=== PATIENT | male | born 1985 | race Caucasian/White ===

== ENCOUNTER 2017-08-21 21:45 | Inpatient (IN) | payer OTHER ==
[~2017-08-21] VITALS: Ht 190.5 cm; Wt 81.6 kg
[2017-08-21] MEDS ORDERED: DICYCLOMINE HCL 20 MG TABLET PO PRN (23:15)
[2017-08-21] MEDS ORDERED: ACETAMINOPHEN 325 MG TABLET PO PRN (23:15)
[2017-08-21] MEDS ORDERED: BUPRENORPHINE HCL 2 MG TAB.SUBL SL PRN (23:15)
[2017-08-21] MEDS ORDERED: MAGNESIUM HYDROXIDE 30 ML LIQUID UDC PO PRN (23:15)
[2017-08-21] MEDS ORDERED: LORAZEPAM 2 MG/1 ML VIAL IM PRN (23:15)
[2017-08-21] MEDS ORDERED: ONDANSETRON 4 MG/2 ML VIAL IM PRN (23:15)
[2017-08-21] MEDS ORDERED: MIRALAX 17 GM POWD.PACK PO PRN (23:15)
[2017-08-21] MEDS ORDERED: IBUPROFEN 600 MG TABLET PO PRN (23:15)
[2017-08-21] MEDS ORDERED: METHOCARBAMOL 750 MG TABLET PO PRN (23:15)
[2017-08-21] MEDS ORDERED: MAG HYDROX/AL HYDROX/SIMETH 30 ML LIQUID UDC PO PRN (23:15)
[2017-08-21] MEDS ORDERED: LOPERAMIDE HCL 2 MG CAPSULE PO PRN ×2 (23:15)
[2017-08-21] MEDS ORDERED: LORAZEPAM 1 MG TABLET PO PRN (23:15)
[2017-08-21] MEDS: diphenhydrAMINE 50 MG CAPSULE PO PRN (23:36)
[2017-08-21] MEDS ORDERED: diphenhydrAMINE 50 MG CAPSULE ONE (23:45)
[2017-08-21] MEDS ORDERED: LORAZEPAM 1 MG TABLET ONE (23:45)
[2017-08-21 23:56] LABS: BASOPHILS # (AUTO) 0.1 K/uL (0.0-8.0); BASOPHILS % (AUTO) 0.7 % (0.0-2.0); EOSINOPHILS # (AUTO) 0.2 K/uL (0.0-0.7); EOSINOPHILS % (AUTO) 1.8 % (0.0-7.0); HEMOGLOBIN 12.7 g/dL (12.5-16.3); LYMPHOCYTES # (AUTO) 2.2 K/uL (20.0-40.0); LYMPHOCYTES % (AUTO) 25.4 % (20.5-51.5); MEAN CORPUSCULAR HEMOGLOBIN 32.4 uug (23.8-33.4); MEAN CORPUSCULAR HGB CONC 34 g/dL (32.5-36.3); MEAN CORPUSCULAR VOLUME 94.2 fL (73.0-96.2); MONOCYTES # (AUTO) 0.9 K/uL (2.0-10.0); NEUTROPHILS # (AUTO) 5.4 K/uL (1.8-8.9); NEUTROPHILS % (AUTO) 62.1 % (38.5-71.5); PLATELET COUNT (AUTO) 246 K/uL (152-348); RED BLOOD CELL COUNT(AUTO) 3.93 MIL/uL (4.06-5.63); WHITE BLOOD COUNT (AUTO) 8.7 K/uL (3.6-10.2)
[2017-08-22] VITALS: BP 129/73
[2017-08-22] MEDS ORDERED: LORAZEPAM 1 MG TABLET PO ONE (00:05)
[2017-08-22 00:07] LABS: ALANINE AMINOTRANSFERASE 25 U/L (16-63); ALKALINE PHOSPHATASE 68 U/L (50-136); ASPARTATE AMINOTRANSFERASE 13 U/L (15-37); BILIRUBIN,TOTAL 0.5 mg/dL (0.2-1.0); CARBON DIOXIDE 30 mmol/L (21-32); CHLORIDE 103 mmol/L (98-107); CREATININE 0.9 mg/dL (0.6-1.3); GLUCOSE 98 mg/dL (74-106); MAGNESIUM 2.1 mg/dL (1.8-2.4); POTASSIUM 3.7 mmol/L (3.5-5.1); TOTAL PROTEIN, SERUM 7.9 g/dL (6.4-8.2); UREA NITROGEN, BLOOD 13 mg/dL (7-18)
[2017-08-22 00:31] LABS: *AMPHETAMINE, URINE POSITIVE (NEGATIVE); *BARBITURATE, URINE NEGATIVE (NEGATIVE); *COCCAINE, URINE NEGATIVE (NEGATIVE); *OPIATE, URINE POSITIVE (NEGATIVE); *PHENCYCLIDINE SCREEN,URINE NEGATIVE (NEGATIVE)
[2017-08-22 02:13] LABS: ETHANOL < 3 MG/DL (0-0)
[2017-08-22 04:00] VITALS: BP 115/69
[2017-08-22 05:26] LABS: *CANNABINOID, URINE NEGATIVE (NEGATIVE)
[2017-08-22 08:00] VITALS: BP 126/90
[2017-08-22] MEDS: THIAMINE HCL 100 MG TABLET PO SCH (08:39)
[2017-08-22] MEDS: MULTIVITAMINS,THERAPEUTIC TABLET PO SCH (08:39)
[2017-08-22] MEDS: FOLIC ACID 1 MG TABLET PO SCH (08:40)
[2017-08-22] MEDS: LORAZEPAM 1 MG TABLET PO PRN ×2 (08:40→17:43)
[2017-08-22] MEDS ORDERED: TUBERCULIN,PURIF.PROT.DERIV. 5 TU/0.1 ML TEST ID ONE (09:00)
[2017-08-22] MEDS: ONDANSETRON ODT 4 MG TAB.RAPDIS SL PRN (10:17)
[2017-08-22] MEDS ORDERED: DOXE25CA3 PO (11:15)
[2017-08-22] MEDS ORDERED: HYDR-3026 PO (11:15)
[2017-08-22] MEDS ORDERED: NICO2GUM9 BC (11:15)
[2017-08-22] MEDS ORDERED: TRAZ-144 PO (11:15)
[2017-08-22] MEDS ORDERED: ONDA4TAB11 PO (11:15)
[2017-08-22] MEDS ORDERED: METH-406 PO (11:15)
[2017-08-22] MEDS ORDERED: BUPRENORPHINE HCL 2 MG TAB.SUBL SL PRN (11:30)
[2017-08-22] MEDS ORDERED: NICOTINE POLACRILEX 4 MG GUM-PK OF TEN BC PRN (11:30)
[2017-08-22] MEDS ORDERED: NICOTINE 14 MG/24HR PATCH TD PRN (11:30)
[2017-08-22 12:00] VITALS: BP 137/100
[2017-08-22] MEDS: LORAZEPAM 1 MG TABLET PO SCH ×2 (14:28→22:08)
[2017-08-22] MEDS: CLONIDINE HCL 0.1 MG TABLET PO PRN ×2 (14:29→20:45)
[2017-08-22 16:00] VITALS: BP 134/60
[2017-08-22 20:00] VITALS: BP 131/100
[2017-08-22] MEDS ORDERED: BUPRENORPHINE HCL 2 MG TAB.SUBL SL SCH (21:00)
[2017-08-22] MEDS: diphenhydrAMINE 50 MG CAPSULE PO PRN (22:07)
[2017-08-22] MEDS: GABAPENTIN 300 MG CAPSULE PO SCH (22:07)
[2017-08-23] VITALS: BP 147/93
[2017-08-23 08:00] VITALS: BP 105/52
[2017-08-23] MEDS: FOLIC ACID 1 MG TABLET PO SCH (08:24)
[2017-08-23] MEDS: GABAPENTIN 300 MG CAPSULE PO SCH ×2 (08:24→20:53)
[2017-08-23] MEDS: BUPRENORPHINE HCL 2 MG TAB.SUBL SL SCH ×3 (08:24→20:53)
[2017-08-23] MEDS: THIAMINE HCL 100 MG TABLET PO SCH (08:24)
[2017-08-23] MEDS: LORAZEPAM 1 MG TABLET PO SCH ×3 (08:24→20:52)
[2017-08-23] MEDS: MULTIVITAMINS,THERAPEUTIC TABLET PO SCH (08:24)
[2017-08-23 10:08] LABS: HEPATITIS B SURFACE AG Negative (Negative)
[2017-08-23 12:00] VITALS: BP 109/68
[2017-08-23] MEDS: ONDANSETRON ODT 4 MG TAB.RAPDIS SL PRN (15:23)
[2017-08-23] MEDS ORDERED: KETOROLAC TROMETHAMINE 30 MG INJ IM PRN (15:45)
[2017-08-23 16:00] VITALS: BP 110/56
[2017-08-23 20:00] VITALS: BP 143/84
[2017-08-23] MEDS: CLONIDINE HCL 0.1 MG TABLET PO SCH (20:52)
[2017-08-23] MEDS: diphenhydrAMINE 50 MG CAPSULE PO PRN (22:36)
[2017-08-24] VITALS: BP 94/58
[2017-08-24 04:00] VITALS: BP 90/51
[2017-08-24 09:00] VITALS: BP 118/87
[2017-08-24] MEDS: CLONIDINE HCL 0.1 MG TABLET PO SCH ×2 (09:00→20:35)
[2017-08-24] MEDS: LORAZEPAM 1 MG TABLET PO SCH ×2 (09:19→20:35)
[2017-08-24] MEDS: GABAPENTIN 300 MG CAPSULE PO SCH ×3 (09:20→20:35)
[2017-08-24] MEDS: THIAMINE HCL 100 MG TABLET PO SCH (09:20)
[2017-08-24] MEDS: FOLIC ACID 1 MG TABLET PO SCH (09:20)
[2017-08-24] MEDS: BUPRENORPHINE HCL 2 MG TAB.SUBL SL SCH ×2 (09:20→20:35)
[2017-08-24] MEDS: MULTIVITAMINS,THERAPEUTIC TABLET PO SCH (09:20)
[2017-08-24 12:19] VITALS: BP 125/65
[2017-08-24 17:51] VITALS: BP 97/44
[2017-08-24 20:00] VITALS: BP 136/78
[2017-08-24] MEDS: diphenhydrAMINE 50 MG CAPSULE PO PRN (21:27)
[2017-08-25] MEDS ORDERED: BUPRENORPHINE HCL 2 MG TAB.SUBL SL SCH (09:00)
[2017-08-25] MEDS ORDERED: LORAZEPAM 1 MG TABLET PO SCH (09:00)
[2017-08-25] MEDS: CLONIDINE HCL 0.1 MG TABLET PO SCH ×2 (09:15→20:53)
[2017-08-25] MEDS: MULTIVITAMINS,THERAPEUTIC TABLET PO SCH (09:16)
[2017-08-25] MEDS: THIAMINE HCL 100 MG TABLET PO SCH (09:16)
[2017-08-25] MEDS: GABAPENTIN 300 MG CAPSULE PO SCH ×3 (09:16→20:53)
[2017-08-25] MEDS: FOLIC ACID 1 MG TABLET PO SCH (09:16)
[2017-08-25 09:22] VITALS: BP 113/70
[2017-08-25 12:34] VITALS: BP 116/71
[2017-08-25 16:53] VITALS: BP 114/62
[2017-08-25] MEDS ORDERED: METH-406 PO (19:52)
[2017-08-25] MEDS ORDERED: DIPH50CA37 PO (19:52)
[2017-08-25] MEDS ORDERED: NICO4GUM38 BC (19:52)
[2017-08-25] MEDS ORDERED: GABA-534 PO (19:52)
[2017-08-25] MEDS ORDERED: IBUP-1955 PO (19:52)
[2017-08-25] MEDS ORDERED: DICY20TA28 PO (19:52)
[2017-08-25] MEDS ORDERED: CLON0.1T14 PO (19:52)
[2017-08-25 20:00] VITALS: BP 130/75
[2017-08-25] MEDS: diphenhydrAMINE 50 MG CAPSULE PO PRN (21:44)
[2017-08-26 08:16] VITALS: BP 113/60
[2017-08-26] MEDS: THIAMINE HCL 100 MG TABLET PO SCH (08:42)
[2017-08-26 08:43] VITALS: BP 113/60
[2017-08-26] MEDS: GABAPENTIN 300 MG CAPSULE PO SCH (08:43)
[2017-08-26] MEDS: CLONIDINE HCL 0.1 MG TABLET PO SCH (08:43)
[2017-08-26] MEDS: FOLIC ACID 1 MG TABLET PO SCH (08:43)
[2017-08-26] MEDS: MULTIVITAMINS,THERAPEUTIC TABLET PO SCH (08:43)
== END 2017-08-26 11:43 | DRG 895 ==
LOC: SRC 21:45
PROVIDERS: ADMIT Internal Medicine; ATTEND Internal Medicine
PROC: HZ2ZZZZ Detoxification Services for Substance Abuse Treatment (ICD-10-PCS; principal; 2017-08-21)
PROC: HZ31ZZZ Individual Counseling for Substance Abuse Treatment, Behavioral (ICD-10-PCS; 2017-08-24)
PROC: HZ41ZZZ Group Counseling for Substance Abuse Treatment, Behavioral (ICD-10-PCS; 2017-08-24)
DX: F10.230 Alcohol dependence with withdrawal, uncomplicated (principal); F15.20 Other stimulant dependence, uncomplicated; I15.9 Secondary hypertension, unspecified; F11.23 Opioid dependence with withdrawal; Y90.0 Blood alcohol level of less than 20 mg/100 ml; Z79.899 Other long term (current) drug therapy; F41.9 Anxiety disorder, unspecified; Z91.89 Other specified personal risk factors, not elsewhere classified; F17.210 Nicotine dependence, cigarettes, uncomplicated; F14.10 Cocaine abuse, uncomplicated; Z83.3 Family history of diabetes mellitus; F13.10 Sedative, hypnotic or anxiolytic abuse, uncomplicated
CPT/HCPCS: 36415; 70030-TC; 80307; 80324; 80346; 80361; 83735; 85025; 86580; 86592; 86705; 86803; 87340; 87806; A4663; G0480; Q0162; Q0163

== ENCOUNTER 2018-06-10 17:00 | Inpatient (IN) | payer OTHER ==
[~2018-06-10] VITALS: Ht 190.5 cm; Wt 95.3 kg
[~2018-06-10 17:00] MED LIST: CLON0.1T14 PO; DICY20TA28 PO; DIPH50CA37 PO; GABA-534 PO; IBUP-1955 PO; METH-406 PO; NICO2GUM9 BC; NICO4GUM38 BC; ONDA4TAB11 PO
[2018-06-10 21:00] VITALS: BP 128/75
[2018-06-10] MEDS ORDERED: 4 DAY TAPER BUPRENORPHINE -SERENITY PROTOCOL SL PRN (21:00)
[2018-06-10] MEDS ORDERED: LOPERAMIDE HCL 2 MG CAPSULE PO PRN ×2 (21:00)
[2018-06-10] MEDS ORDERED: ONDANSETRON ODT 4 MG TAB.RAPDIS SL PRN (21:00)
[2018-06-10] MEDS ORDERED: MAG HYDROX/AL HYDROX/SIMETH 30 ML LIQUID UDC PO PRN (21:00)
[2018-06-10] MEDS ORDERED: HYDROXYZINE PAMOATE 25 MG CAPSULE PO PRN (21:00)
[2018-06-10] MEDS ORDERED: MAGNESIUM HYDROXIDE 30 ML LIQUID UDC PO PRN (21:00)
[2018-06-10] MEDS ORDERED: BUPRENORPHINE HCL 2 MG TAB.SUBL SL PRN (21:00)
[2018-06-10] MEDS ORDERED: ACETAMINOPHEN 325 MG TABLET PO PRN (21:00)
[2018-06-10] MEDS ORDERED: MIRALAX 17 GM POWD.PACK PO PRN (21:00)
[2018-06-10] MEDS ORDERED: DICYCLOMINE HCL 20 MG TABLET PO PRN (21:00)
[2018-06-10] MEDS ORDERED: ONDANSETRON 4 MG/2 ML VIAL IM PRN (21:00)
[2018-06-10 21:10] LABS: *AMPHETAMINE, URINE NEGATIVE (NEGATIVE); *BARBITURATE, URINE NEGATIVE (NEGATIVE); *CANNABINOID, URINE NEGATIVE (NEGATIVE); *COCCAINE, URINE NEGATIVE (NEGATIVE); *OPIATE, URINE NEGATIVE (NEGATIVE); *PHENCYCLIDINE SCREEN,URINE NEGATIVE (NEGATIVE)
[2018-06-10 21:17] LABS: ETHANOL < 3 MG/DL (0-0)
[2018-06-10 21:18] LABS: BASOPHILS # (AUTO) 0.1 K/uL (0.0-8.0); BASOPHILS % (AUTO) 0.8 % (0.0-2.0); EOSINOPHILS # (AUTO) 0.3 K/uL (0.0-0.7); EOSINOPHILS % (AUTO) 3.1 % (0.0-7.0); HEMOGLOBIN 15.3 g/dL (12.5-16.3); LYMPHOCYTES # (AUTO) 1.8 K/uL (20.0-40.0); LYMPHOCYTES % (AUTO) 18.3 % (20.5-51.5); MEAN CORPUSCULAR HEMOGLOBIN 34.3 uug (23.8-33.4); MEAN CORPUSCULAR HGB CONC 35 g/dL (32.5-36.3); MEAN CORPUSCULAR VOLUME 98.4 fL (73.0-96.2); MONOCYTES # (AUTO) 0.7 K/uL (2.0-10.0); MONOCYTES % (AUTO) 7.4 % (0.0-11.0); NEUTROPHILS # (AUTO) 7.1 K/uL (1.8-8.9); NEUTROPHILS % (AUTO) 70.4 % (38.5-71.5); PLATELET COUNT (AUTO) 183 K/uL (152-348); RED BLOOD CELL COUNT(AUTO) 4.47 MIL/uL (4.06-5.63); WHITE BLOOD COUNT (AUTO) 10.1 K/uL (3.6-10.2)
[2018-06-10 21:26] LABS: ALANINE AMINOTRANSFERASE 25 U/L (16-63); ALKALINE PHOSPHATASE 61 U/L (50-136); AMYLASE 34 U/L (25-115); ASPARTATE AMINOTRANSFERASE 18 U/L (15-37); BILIRUBIN,TOTAL 0.4 mg/dL (0.2-1.0); CARBON DIOXIDE 30 mmol/L (21-32); CHLORIDE 101 mmol/L (98-107); CREATININE 0.9 mg/dL (0.6-1.3); GLUCOSE 66 mg/dL (74-106); LIPASE 81 U/L (73-393); MAGNESIUM 1.9 mg/dL (1.8-2.4); POTASSIUM 4.1 mmol/L (3.5-5.1); TOTAL PROTEIN, SERUM 8.2 g/dL (6.4-8.2); UREA NITROGEN, BLOOD 12 mg/dL (7-18)
[2018-06-10 21:31] LABS: THYROID STIMULATING HORMONE 0.246 mIU/mL (0.358-3.740)
[2018-06-10] MEDS: diphenhydrAMINE 50 MG CAPSULE PO PRN (21:45)
[2018-06-10] MEDS: CLONIDINE HCL 0.1 MG TABLET PO PRN (21:45)
[2018-06-10] MEDS: METHOCARBAMOL 750 MG TABLET PO PRN (21:45)
[2018-06-11] VITALS: BP 113/69
[2018-06-11 04:00] VITALS: BP 118/71
[2018-06-11 08:48] VITALS: BP 100/53
[2018-06-11] MEDS ORDERED: TUBERCULIN,PURIF.PROT.DERIV. 5 TU/0.1 ML TEST ID ONE (09:00)
[2018-06-11] MEDS: MULTIVITAMINS,THERAPEUTIC TABLET PO SCH (09:59)
[2018-06-11] MEDS: BUPRENORPHINE HCL 2 MG TAB.SUBL SL SCH ×3 (09:59→21:09)
[2018-06-11 12:00] VITALS: BP 111/58
[2018-06-11] MEDS ORDERED: NICOTINE POLACRILEX 4 MG GUM-PK OF TEN BC PRN (12:15)
[2018-06-11 16:00] VITALS: BP 101/60
[2018-06-11] MEDS: METHOCARBAMOL 750 MG TABLET PO PRN (18:47)
[2018-06-11] MEDS: IBUPROFEN 600 MG TABLET PO PRN (18:47)
[2018-06-11 20:00] VITALS: BP 114/70
[2018-06-11] MEDS: diphenhydrAMINE 50 MG CAPSULE PO PRN (21:09)
[2018-06-11] MEDS: CLONIDINE HCL 0.1 MG TABLET PO PRN (21:10)
[2018-06-12] VITALS (7 sets, daily range): BP systolic 90–124; BP diastolic 29–81
[2018-06-12] MEDS ORDERED: BUPRENORPHINE HCL 2 MG TAB.SUBL SL SCH (09:00)
[2018-06-12] MEDS: MULTIVITAMINS,THERAPEUTIC TABLET PO SCH (09:52)
[2018-06-12] MEDS: METHOCARBAMOL 750 MG TABLET PO PRN ×2 (10:04→21:04)
[2018-06-12] MEDS: IBUPROFEN 600 MG TABLET PO PRN (10:04)
[2018-06-12] MEDS: BUPRENORPHINE HCL 2 MG TAB.SUBL SL SCH ×2 (15:24→21:04)
[2018-06-12] MEDS: CLONIDINE HCL 0.1 MG TABLET PO PRN (21:04)
[2018-06-12 22:08] LABS: HEPATITIS B SURFACE AG Negative (Negative)
[2018-06-13] VITALS: BP 107/74
[2018-06-13 04:00] VITALS: BP 102/72
[2018-06-13 08:09] VITALS: BP 84/42
[2018-06-13] MEDS: MULTIVITAMINS,THERAPEUTIC TABLET PO SCH (09:17)
[2018-06-13] MEDS: BUPRENORPHINE HCL 2 MG TAB.SUBL SL SCH ×2 (09:17→14:42)
[2018-06-13] MEDS: METHOCARBAMOL 750 MG TABLET PO PRN ×2 (09:36→21:57)
[2018-06-13 12:00] VITALS: BP 116/60
[2018-06-13] MEDS ORDERED: METH-406 PO (14:41)
[2018-06-13] MEDS ORDERED: CLON0.1T14 PO (14:41)
[2018-06-13] MEDS: IBUPROFEN 600 MG TABLET PO PRN (14:43)
[2018-06-13 16:00] VITALS: BP 111/60
[2018-06-13 20:00] VITALS: BP 126/76
[2018-06-13] MEDS: CLONIDINE HCL 0.1 MG TABLET PO PRN (21:57)
[2018-06-14] VITALS: BP 110/67
[2018-06-14 04:00] VITALS: BP 103/65
[2018-06-14 08:30] VITALS: BP 118/58
[2018-06-14] MEDS: MULTIVITAMINS,THERAPEUTIC TABLET PO SCH (08:47)
[2018-06-14] MEDS ORDERED: BUPRENORPHINE HCL 2 MG TAB.SUBL SL SCH (09:00)
== END 2018-06-14 09:57 | disposition home or self-care (01) | DRG 895 ==
LOC: SRC 19:40
PROVIDERS: ADMIT Internal Medicine; ATTEND Internal Medicine
PROC: HZ2ZZZZ Detoxification Services for Substance Abuse Treatment (ICD-10-PCS; principal; 2018-06-10)
PROC: HZ31ZZZ Individual Counseling for Substance Abuse Treatment, Behavioral (ICD-10-PCS; 2018-06-13)
DX: F11.23 Opioid dependence with withdrawal (principal); E46 Unspecified protein-calorie malnutrition; F14.21 Cocaine dependence, in remission; F41.1 Generalized anxiety disorder; F17.210 Nicotine dependence, cigarettes, uncomplicated; E86.0 Dehydration; E16.2 Hypoglycemia, unspecified; D75.89 Other specified diseases of blood and blood-forming organs; I95.9 Hypotension, unspecified; R00.1 Bradycardia, unspecified
CPT/HCPCS: 36415; 80307; 83690; 83735; 84443; 85025; 86592; 86705; 86803; 87340; 87806; G0480; Q0163